=== PATIENT | female | born 1945 | race Caucasian/White ===

== ENCOUNTER 2021-06-17 12:28 | Emergency (ER) | payer MEDICARE ==
[~2021-06-17] VITALS: Ht 165.1 cm; Wt 78.6 kg
[2021-06-17 12:44] VITALS: BP 142/76
[2021-06-17 13:28] LABS: HEMATOCRIT 34.2 % (37.0-47.0); HEMOGLOBIN 11.2 g/dl (12.0-16.0); IMMATURE GRANULOCYTES 0.1 % (0.0-5.0); MEAN CELL VOLUME 98.6 fL CALC (80.0-100.0); MEAN CORPUSCULAR HGB 32.3 pG CALC (26.0-32.0); MEAN CORPUSCULAR HGB CONC 32.7 g/dL CAL (32.0-36.0); NEUT# 4.07 thou/uL (2.00-7.15); RED BLOOD COUNT 3.47 mill/uL (4.20-5.60)
[2021-06-17 13:38] LABS: ANION GAP 12 (6-22 (CALC)); BUN 37 mg/dL (8-23); BUN/CREATININE RATIO 27 (12-20 (CALC)); C-REACTIVE PROTEIN < 0.5 mg/dL (0-0.9); CARBON DIOXIDE 25 mmol/l (22-30); CHLORIDE 106 mmol/l (95-108); CREATININE 1.4 mg/dL (0.5-1.0); GFR 37 ML/MIN (>=60 (CALC)); GFR FOR AFR.AMER. 44 ML/MIN (>=60 (CALC)); POTASSIUM 4.4 mmol/l (3.5-5.1); SODIUM 138 mmol/l (137-146)
[2021-06-17 14:10] VITALS: BP 142/76
[2021-06-17] MEDS ORDERED: DOXYCYCL HYC100 M2 IV (14:23)
== END 2021-06-17 14:40 | disposition home or self-care (01) ==
LOC: ED 12:28
PROVIDERS: Nurse Practitioner
DX: L03.115 Cellulitis of right lower limb (principal)